=== PATIENT | male | born 1960 | race Caucasian/White ===

== ENCOUNTER 2017-11-11 21:47 | Emergency (ER) | payer OTHER ==
--- NOTE | 2017-11-11 21:56 | PDOC ---
History of Present Illness - General Chief Complaint: Injury Stated Complaint: FELL DOWN STAIRS INJURY TO RIGHT ANKLE Time Seen by Provider: 11/11/17 21:50 History Source: Patient Exam Limitations: No Limitations - History of Present Illness Initial Comments: 11/11/17 22:10 This is a 57-year-old male who slipped while going down the stairs and fell down the stairs on his buttocks and back. Patient said he twisted his ankle and heard a pop when he went down. Patient is unable to bear weight and comes in complaining of severe pain to his ankle. Patient said he did not hit his head, did not pass out and denies any other pain or injuries. PAST MEDICAL HISTORY: no significant history PAST SURGICAL HISTORY: no significant history FAMILY HISTORY: no pertinant history SOCIAL HISTORY: Pt lives with family and is employed., Patient drinks alcohol on a daily basis MEDICATIONS: reviewed ALLERGIES: As per nursing notes Review of Systems General: No fevers or chills, no weakness, no weight loss HEENT: No change in vision. No sore throat,. No ear pain CardioVascular: No chest pain or shortness of breath Respiratory:No cough, or wheezing. Gastrointestinal: no nausea, vomitting, diarrhea or constipation, No rectal bleeding Genitourinary: No dysuria, hematuria, or frequency Musculoskeletal: + Pain of right ankle Neurologic: No headache, vertigo, dizziness or loss of consciousness Psychiatric: nor depression Skin: No rashes or easy bruising Endocrine: no increased thirst or abnormal weight change Allergic: no skin or latex allergy All other systems reviewed and normal GENERAL: The patient is awake, alert, and fully oriented, in no acute distress. HEAD: Normal with no signs of trauma. EYES: Pupils equal, round and reactive to light, extraocular movements intact, sclera anicteric, conjunctiva clear. EXTREMITIES: Right ankle: There is marked swelling of the right ankle with probable dislocation. Neurovascular distal is intact NEUROLOGICAL: Normal speech, normal gait. grossly intact PSYCH: Normal mood, normal affect. SKIN: Warm, Dry, normal turgor, no rashes or lesions noted. 11/11/17 22:29 X-ray shows bimalleolar fracture with some moderate displacement Bimalleolar fracture Procedure note OCL Sugar tong splint applied to right ankle and lower leg neurovascular post splint application intact patient tolerated well Assessment and plan: This is a 57-year-old male with a bimalleolar fracture of his right ankle. There is some mild displacement however neurovascular is intact. Sugar tong splint was applied and patient given crutches and told to be nonweightbearing. Patient given referral to Dr. Rojas orthopedist. Patient discharged home with Percocet will follow-up with the orthopedist: Past History - Past Medical History Allergies/Adverse Reactions: Allergies Allergy/AdvReac Type Severity Reaction Status Date / Time No Known Allergies Allergy Verified 11/11/17 21:48 Home Medications: Ambulatory Orders Amlodipine/Atorvastatin [Caduet 10 mg-20 mg Tablet] 11/11/17 Oxycodone HCl/Acetaminophen [Percocet 5-325 mg Tablet] 1 - 2 tab PO Q4H #20 tablet MDD 8 11/11/17 COPD: No HTN: Yes Hypercholesterolemia: Yes - Suicide/Smoking/Psychosocial Hx Smoking History: Never smoked Have you smoked in the past 12 months: No Information on smoking cessation initiated: No Hx Alcohol Use: Yes ([employer]) Drug/Substance Use Hx: No Substance Use Type: Alcohol *Physical Exam - Vital Signs Last Vital Signs Temp Pulse Resp BP Pulse Ox 98.3 F 65 16 108/63 98 11/11/17 21:51 11/11/17 21:51 11/11/17 21:51 11/11/17 21:51 11/11/17 21:51 *DC/Admit/Observation/Transfer Diagnosis at time of Disposition: Bimalleolar fracture of right ankle Qualifiers: Encounter type: initial encounter Fracture type: closed Qualified Code(s): S82.841A - Displaced bimalleolar fracture of right lower leg, initial encounter for closed fracture - Discharge Dispostion Disposition: HOME Condition at time of disposition: Stable Admit: No - Prescriptions Prescriptions: Oxycodone HCl/Acetaminophen [Percocet 5-325 mg Tablet] 1 - 2 tab PO Q4H #20 tablet MDD 8 - Referrals - Patient Instructions Additional Instructions: Leave the splint in place and use your crutches no weight bearing. Call Dr. garnett in the morning at [phone] for an appointment. For the pain you can take Percocet one or 2 tablets every 4-6 hours. Do not mix alcohol or any other sedatives with the Percocet as it will make you drowsy so you cannot go to work or drive a vehicle if you take the Percocet. Return to the emergency department immediately with ANY new, persistent or worsening symptoms. Continue any medications as previously prescribed by your physician. You should follow up with your primary doctor as soon as possible regarding today's emergency department visit. . Please make sure your doctor reviews the results of your emergency evaluation. Thank you for coming to the Emergency Department today for your care. It was a pleasure to see you today. Please note that your evaluation is INCOMPLETE until you follow-up with your doctor. - Post Discharge Activity
[2017-11-11 22:02] VITALS: BP 108/63; PULSE 65; TEMP 98.3; BMI 20.7
== END 2017-11-11 23:03 | disposition home or self-care (01) ==
LOC: FER 21:47
PROC: 2W3QX1Z Immobilization of Right Lower Leg using Splint (ICD-10-PCS; principal; 2017-11-11)
DX: S82.841A Displaced bimalleolar fracture of right lower leg, initial encounter for closed fracture (principal); W10.9XXA Fall (on) (from) unspecified stairs and steps, initial encounter; Y93.89 Activity, other specified; Y92.9 Unspecified place or not applicable; I10 Essential (primary) hypertension; E78.00 Pure hypercholesterolemia, unspecified
CPT/HCPCS: 73610-TC-RT-FY; 73630-TC-RT-FY; 99281-25